=== PATIENT | female | born 1950 | race Caucasian/White ===

== ENCOUNTER 2016-11-09 23:17 | Emergency (ER) | payer MEDICAID ==
[~2016-11-09] VITALS: Ht 154.9 cm; Wt 81.0 kg
[2016-11-09] MEDS ORDERED: ATOR20TA86 PO (23:28)
[2016-11-09] MEDS ORDERED: FURO40 PO (23:28)
[2016-11-09] MEDS ORDERED: SPIR25 PO (23:28)
[2016-11-09] MEDS ORDERED: LISI-660 PO (23:28)
[2016-11-09] MEDS ORDERED: CARV3 PO (23:28)
[2016-11-09] MEDS ORDERED: ASPI-556 PO (23:28)
[2016-11-10] MEDS ORDERED: PredniSONE 20 MG TABLET PO ONE (00:15)
[2016-11-10 00:45] VITALS: BP 130/88
== END 2016-11-10 00:47 | disposition home or self-care (01) ==
LOC: EMS 23:18
DX: T78.3XXA Angioneurotic edema, initial encounter (principal); I11.0 Hypertensive heart disease with heart failure; I50.9 Heart failure, unspecified; E78.00 Pure hypercholesterolemia, unspecified; Z88.6 Allergy status to analgesic agent
CPT/HCPCS: 99283; J7512